=== PATIENT | female | born 1975 | race African-American/Black ===

== ENCOUNTER → 2017-08-04 | Day surgery (SDC) | payer OTHER ==
[~2017-08-04] MED LIST: AMLO10 PO; ASPI325T PO; CYMB30CA PO; HYDR12.56 PO; LACTATED RINGER'S 1000 ML INJ 1,000 ML ONE; LISI-360 PO; LORT5TAB PO; NEUR100C PO; PROPOFOL 500 MG/50 ML BTL IV ONE; SULF1TAB47 PO
--- NOTE | 2017-08-04 10:13 | GIPROC ---
[facility] [address] [facility], [address] COLONOSCOPY PROCEDURE REPORT EXAM DATE: 08/04/2017 PATIENT NAME: Fernando Marvin MR #: [id number] BIRTHDATE: 1975 ENDOSCOPIST: Aiden Belcher MD ORDER #: [id number] ALTERATIONS SEWER: Kartik Lo RN STATUS: outpatient INDICATIONS: The patient is a 41 yr old female here for a colonoscopy due to abdominal pain and rectal bleeding PROCEDURE PERFORMED: Colonoscopy, diagnostic MEDICATIONS: None, Per Anesthesia, None, and Per Anesthesia. PREP QUALITY: excellent ESTIMATED BLOOD LOSS: None CONSENT: The patient understands the risks and benefits of the procedure and understands that these risks include, but are not limited to: sedation, allergic reaction, infection, perforation and/or bleeding. Alternative means of evaluation and treatment include, among others: physical exam, x-rays, and/or surgical intervention. The patient elects to proceed with this endoscopic procedure. medical equipment was checked for proper function. Hand hygiene and appropriate measures for infection prevention was taken. After the risks, benefits and alternatives of the procedure were thoroughly explained, Informed consent was verified, confirmed and timeout was successfully executed by the treatment team. A digital exam revealed no abnormalities of the rectum The EC-[id number] ([id number] endoscope was introduced through the anus and advanced to the cecum, which was identified by both the appendix and ileocecal valve. The instrument was then slowly withdrawn as the colon was fully examined. COLON FINDINGS: The colonic mucosa appeared normal. Retroflexed views revealed internal hemorrhoids and Retroflexed views revealed small internal hemorrhoids The scope was then completely withdrawn from the patient and the procedure terminated. PROCEDURE WITHDRAWAL TIME:13.3minutes ADVERSE EVENTS: There were no complications. IMPRESSIONS: 1. The colonic mucosa appeared normal 2. Retroflexed views revealed internal hemorrhoids 3. Retroflexed views revealed small internal hemorrhoids 4. Revealed no abnormalities of the rectum RECOMMENDATIONS: 1. High fiber diet 2. Follow-up: [facility] 4 week(s) RECALL: Return 10 years Colonoscopy Aiden Belcher MD eSigned: Aiden Belcher MD 08/04/2017 10:13 AM cc: Pola Moreland
== END | disposition home or self-care (01) ==
LOC: ESDC 08:29
PROVIDERS: ATTEND Internal Medicine Gastroenterology
DX: R10.9 Unspecified abdominal pain (principal); K62.5 Hemorrhage of anus and rectum; K64.8 Other hemorrhoids
CPT/HCPCS: 00810; 45378; J7120